=== PATIENT | male | born 1985 ===

== ENCOUNTER 2017-03-14 16:07 | Emergency (ER) | payer MEDICAID ==
[~2017-03-14] VITALS: Ht 175.3 cm; Wt 71.2 kg
--- NOTE | 2017-03-14 16:13 | NUR ---
BIB AMBULANCE FOR "DRUG OVERDOSE". PT IS AWAKE, ALERT, ORIENTED X4 IN NO DISTRESS. STATES HE TOOK "ONE 30MG YAMILETH AND THATS ALL I REMEMBER". VITAL SIGNS STABLE. SPO2 100 % ON RA.
--- NOTE | 2017-03-14 16:29 | NUR ---
[employer] AT BEDSIDE SPEAKING TO PATIENT.
[2017-03-14] MEDS ORDERED: IV NS 1000 ML 1,000 ML IV ONE (17:00)
--- NOTE | 2017-03-14 17:13 | NUR ---
PATIENT AWAKE. A/OX4,SPEAKING WITH CLEAR SPEECH. NO DISTRESS NOTED
[2017-03-14 17:24] LABS: BASOPHILS # (AUTO) 0.4 K/uL (0.0-8.0); EOSINOPHILS % (AUTO) 0.2 % (0.0-7.0); HEMATOCRIT 47.8 % (40-50); HEMOGLOBIN 15.9 G/DL (14.0-18.0); LYMPHOCYTES # (AUTO) 0.5 K/UL (0.8-4.8); LYMPHOCYTES % (AUTO) 3.8 % (20.5-51.5); MEAN CORPUSCULAR HEMOGLOBIN 29.9 UUG (27.0-31.0); MEAN CORPUSCULAR HGB CONC 33 g/dL (32.0-37.0); MONOCYTES # (AUTO) 0.7 K/UL (0.1-1.30); MONOCYTES % (AUTO) 5.1 % (0.0-11.0); NEUTROPHILS # (AUTO) 11.3 K/UL (1.8-8.9); NEUTROPHILS % (AUTO) 87.9 % (38.5-71.5); RED BLOOD CELL COUNT(AUTO) 5.32 MIL/UL (4.7-6.1); WHITE BLOOD COUNT (AUTO) 12.9 K/UL (4.0-11.2)
[2017-03-14 17:27] LABS: PLATELET COUNT (AUTO) 327 K/UL (150-450)
[2017-03-14 17:30] LABS: CARBON DIOXIDE 27 mmol/L (21-32); CHLORIDE 106 mmol/L (98-107); CREATININE 1.1 mg/dL (0.6-1.3); GLUCOSE 146 mg/dL (74-106); POTASSIUM 4.4 mmol/L (3.5-5.1); UREA NITROGEN, BLOOD 16 mg/dL (7-18)
[2017-03-14 17:36] LABS: ALANINE AMINOTRANSFERASE 23 U/L (16-63); ALKALINE PHOSPHATASE 57 U/L (50-136); ASPARTATE AMINOTRANSFERASE 17 U/L (15-37); BILIRUBIN,TOTAL 0.3 mg/dL (0.2-1.0); CREATINE KINASE, TOTAL 40 U/L (39-308); TOTAL PROTEIN, SERUM 7.5 g/dL (6.4-8.2)
[2017-03-14 17:38] LABS: ETHANOL < 3 MG/DL (0-0)
[2017-03-14 17:42] LABS: BAND % (MANUAL) 8 % (0-10); LYMPHOCYTES % (MANUAL) 5 % (20-40); MONOCYTES % (MANUAL) 5 % (2-10); NEUTROPHILS % (MANUAL) 82 % (42-75)
--- NOTE | 2017-03-14 18:21 | NUR ---
Patient able to tolerate PO intake with no N/V. Interacting well with friend at bedside. No distress noted
[2017-03-14 18:22] LABS: *BILIRUBIN,URIN NEGATIVE (NEGATIVE); *BLOOD, URINE NEGATIVE (NEGATIVE); *COLOR,URINE YELLOW (YELLOW); *KETONES,URINE NEGATIVE (NEGATIVE); *PROTEIN,URINE 2+ (NEGATIVE); *UROBILINOGEN,URINE 0.2 E.U./dl (NORMAL); LEUKOCYTE ESTERASE ,URINE NEGATIVE (NEGATIVE); NITRITE, URINE NEGATIVE (NEGATIVE); UGLUCOSE NEGATIVE (NEGATIVE)
[2017-03-14 18:37] LABS: *AMPHETAMINE, URINE NEGATIVE (NEGATIVE); *BARBITURATE, URINE NEGATIVE (NEGATIVE); *CANNABINOID, URINE NEGATIVE (NEGATIVE); *COCCAINE, URINE NEGATIVE (NEGATIVE); *OPIATE, URINE NEGATIVE (NEGATIVE); *PHENCYCLIDINE SCREEN,URINE NEGATIVE (NEGATIVE)
--- NOTE | 2017-03-14 18:48 | NUR ---
IV removed. Catheter intact and site benign. Pressure and 4x4 gauze applied to site. No bleeding noted.
[2017-03-14 18:50] LABS: *CLARITY,URINE HAZY (CLEAR)
--- NOTE | 2017-03-14 18:50 | NUR ---
Patient discharged to home in stable conditon walked out of ER . Written and verbal after care instructions given. Patient verbalizes understanding of instructions.
[2017-03-14 18:56] LABS: MUCUS,URINE MANY /LPF (0-FEW); URINE AMORPHOUS PHOSPHATES MODERATE /HPF
[2017-03-14 19:04] VITALS: BP 122/75
== END 2017-03-14 19:05 | disposition home or self-care (01) ==
LOC: ER 16:07
DX: T40.601A Poisoning by unspecified narcotics, accidental (unintentional), initial encounter (principal); Y92.9 Unspecified place or not applicable
CPT/HCPCS: 36415; 70030-TC; 71010; 80307; 85025; 93005; A4663; G0480; J7030